=== PATIENT | female | born 1970 | race Caucasian/White ===

== ENCOUNTER 2018-03-04 09:18 | Emergency (ER) | payer SELFPAY ==
[2018-03-04] MEDS: KETOROLAC 30 MG INJ IM (11:23)
[2018-03-04] MEDS: LORAZEPAM 1 MG TAB PO (11:23)
== END 2018-03-04 12:37 | disposition home or self-care (01) ==
LOC: FTE 09:18
DX: S13.4XXA Sprain of ligaments of cervical spine, initial encounter (principal); R07.9 Chest pain, unspecified; V89.2XXA Person injured in unspecified motor-vehicle accident, traffic, initial encounter
CPT/HCPCS: 71045; 72040; 81025; 96372; 99284-25